=== PATIENT | male | born 1990 | race Caucasian/White ===

== ENCOUNTER 2018-10-30 15:29 | Emergency (ER) | payer SELFPAY ==
[~2018-10-30] VITALS: Ht 180.3 cm; Wt 127.0 kg
[~2018-10-30 15:29] MED LIST: ADDERALL 15 MG15 MG PO
--- OUTSIDE RECORDS SUMMARY | 2018-10-30 15:31 | XMS REPORT ---
Author Author [facility] Address Unknown Phone Unavailable Care Team Providers Care Bunker Worker Name Role Phone Unavailable Unavailable Payers Payer Name Policy Type Policy Number Effective Date Expiration Date Problems This patient has no known problems. Allergies, Adverse Reactions, Alerts Allergy Name Allergy Type Status Severity Reaction(s) Onset Date Inactive Date Treating Clinician Comments Penicillins DA Active CO 2018-05-19 00:00:00 Penicillins DA Active CO 2015-10-18 00:00:00 Medications This patient has no known medications.
--- NOTE | 2018-10-30 16:10 | NUR ---
RADIOLOGY AT BEDSIDE AT THIS TIME FOR IMAGING.
[2018-10-30] MEDS ORDERED: IBUPROFEN 600 MG TAB PO ONE (16:12)
--- NOTE | 2018-10-30 17:00 | NUR ---
MEL MORENO AT BEDSIDE AT THIS TIME APPLYING SHORT LEG FIBERGLASS SPLINT TO LT FOOT.
[2018-10-30] MEDS ORDERED: TYLENOL WITH C1 EACH PO (17:08)
--- NOTE | 2018-10-30 17:13 | Diagnostic Imaging Report ---
Exam: Left ankle radiographs-3 views, left foot radiographs-3 views History: Twisted ankle. Comparison: None. Findings: There is soft tissue edema in the hindfoot. On a single view of the hindfoot, there are 2 minimally displaced small non well-corticated bony fragments of the calcaneus at the lateral aspect of the articulation with the cuboid. This is favored to represent a minimally displaced fracture, possibly avulsion type, rather than os peroneum. The Lisfranc alignment is maintained. No evidence of acute fracture or malalignment within the ankle. Impression: Suspected minimally displaced, comminuted fracture of the anterolateral calcaneus at the cuboid articulation. Suggest correlation for point tenderness at this location. Repeat radiographs may be considered in 7-10 days. Signed by: Dr. Aroldo Gallego MD on 10/30/2018 5:10 PM
[2018-10-30 17:56] VITALS: BP 123/65
== END 2018-10-30 18:00 | disposition home or self-care (01) ==
LOC: ER 15:29
DX: S92.014A Nondisplaced fracture of body of right calcaneus, initial encounter for closed fracture (principal); X50.1XXA Overexertion from prolonged static or awkward postures, initial encounter; Y99.0 Civilian activity done for income or pay
CPT/HCPCS: 99284

== ENCOUNTER 2021-02-01 15:42 | Emergency (ER) | payer SELFPAY ==
[~2021-02-01] VITALS: Ht 180.3 cm; Wt 127.0 kg
[~2021-02-01 15:42] MED LIST changes: +TYLENOL WITH C1 EACH PO
[2021-02-01 16:36] LABS: BASOPHILS % 0.4 % (0.0-1.0); EOSINOPHILS # (AUTO) 0.1 (0.0-0.4); EOSINOPHILS % 0.5 % (0.0-6.0); HEMATOCRIT 42.5 % (38.2-49.6); HEMOGLOBIN 13.8 g/dL (14.0-18.0); LYMPHOCYTES # (AUTO) 0.9 (1.0-3.2); LYMPHOCYTES % 8.3 % (18.0-39.1); MEAN CORPUSCULAR HGB CONC 32.5 g/dL (31-35); MEAN CORPUSCULAR VOLUME 92.4 fL (81-99); MONOCYTES # (AUTO) 0.6 (0.2-0.8); MONOCYTES % 5.4 % (4.4-11.3); NEUTROPHILS # (AUTO) 9.1 (2.1-6.9); NEUTROPHILS % 84.8 % (38.7-80.0); PLATELET COUNT 311 x10e3/uL (140-360); RED CELL DISTRIBUTION WIDTH 14.3 % (11.7-14.4)
[2021-02-01 16:54] LABS: ALBUMIN 4.4 g/dL (3.5-5.0); ALBUMIN/GLOBULIN RATIO 0.7 (0.8-2.0); ANION GAP 16.3 mmol/L (8-16); CALCIUM 9.6 mg/dL (8.4-10.2); CREATININE, SERUM 0.77 mg/dL (0.72-1.25); POTASSIUM 4.3 mmol/L (3.5-5.1)
[2021-02-01 17:15] LABS: AMPHETAMINES SCREEN,URINE NEGATIVE (NEGATIVE); BENZODIAZEPINES SCREEN,URINE NEGATIVE (NEGATIVE); CLARITY,URINE SL CLOUDY (CLEAR); COLOR,URINE YELLOW (YELLOW); PHENCYCLIDINE SCREEN,URINE NEGATIVE (NEGATIVE)
[2021-02-01 17:16] LABS: KETONES,URINE NEGATIVE (NEGATIVE); LEUKOCYTE ESTERASE ,URINE NEGATIVE (NEGATIVE); NITRITE,URINE NEGATIVE (NEGATIVE); PROTEIN,URINE DIPSTICK NEGATIVE (NEGATIVE); URINE UROBILINOGEN 0.2 mg/dL (0.2 - 1)
[2021-02-01 17:24] LABS: BACTERIA,URINE FEW /HPF
== END 2021-02-01 18:47 | disposition home or self-care (01) ==
LOC: ER 16:27
DX: M25.472 Effusion, left ankle (principal); M25.471 Effusion, right ankle; F17.210 Nicotine dependence, cigarettes, uncomplicated
CPT/HCPCS: 36415; 80053; 80307; 81001; 82550; 84550; 85025; 99284